=== PATIENT | male | born 1945 | race Caucasian/White ===

== ENCOUNTER 2020-05-25 14:52 | Outpatient (REF) | payer BC, SELFPAY ==
[2020-05-29 10:13] LABS: SARS-CoV-2 RNA Undetected (Undetected); SARS-CoV-2 Specimen Source Nasal
== END 2020-05-25 15:12 ==
LOC: NCHCN 14:52
PROVIDERS: PCP Physician Assistant; Visit Provider Physician Assistant
DX: Z11.59 Encounter for screening for other viral diseases (principal)
CPT/HCPCS: U0003

== ENCOUNTER 2024-12-14 00:19 | Outpatient (CLI) | payer MEDICARE, BC, SELFPAY ==
--- NOTE | 2024-12-14 08:30 | DI.MRI_ITS ---
Exam(s) MR LUMBAR SPINE WO EXAM: MR LUMBAR SPINE WO CLINICAL HISTORY: Low back pain with right leg radiation,post laminectomy syndrome,m96.1. TECHNIQUE: Multiplanar multisequence MRI of the Lumbar spine was performed. COMPARISON: There are no priors for comparison. FINDINGS: Bones: The last intervertebral disc space is designated the L5/S1 level for the numbering purpose of this examination. The vertebral body heights are well maintained. There is straightening of the normal cervical lordosis. Endplate degenerative signal changes are present throughout the lumbar spine. There is a right convex lumbar scoliosis. Cord: The conus tip ends at the T12 level. It is of normal size and signal intensity. T12-L1: No disc herniations or bulges are present. No central spinal canal or neural foraminal stenosis. L1-2: No disc herniations or bulges are present. No central spinal canal or neural foraminal stenosis. L2-3: There prominent osteophytes posteriorly. There are degenerative changes of the facets and hypertrophy of the ligamentum flavum. There is moderate narrowing of the central spinal canal. There is mild right and moderate left neural foraminal stenosis. L3-4: There are osteophytes seen posteriorly. There are degenerative changes of the facets and hypertrophy of the ligamentum flavum causing marked central spinal canal stenosis. There is moderate bilateral neural foraminal stenosis, left greater than right. L4-5: There prominent osteophytes and a diffuse disc bulge at this level. There are hypertrophic changes of the facets and ligamentum flavum. These all contribute to cause moderately severe central spinal canal stenosis. There is moderately severe bilateral neural foraminal stenosis present. L5-S1: There is a diffuse disc bulge. There are hypertrophic changes of the facets and ligamentum flavum. These all contribute to cause moderately severe central spinal canal stenosis. There is marked bilateral neural foraminal stenosis, left greater than right. Soft tissues: The visualized SI joints and sacrum are well maintained. The paraspinal soft tissues are unremarkable. Visualized abdominal organs: There are bilateral simple renal cysts. No follow- up is recommended. IMPRESSION: 1. Multilevel degenerative changes in the lumbar spine. 2. Findings are most marked at L3-L4 where there is marked central spinal canal stenosis and moderate bilateral neural foraminal stenosis. 3. Several levels of the lumbar spine show both central spinal canal and neural foraminal stenosis. Please see the above discussion for complete details. 4. There is a right convex lumbar scoliosis. DATA REPOSITORY:
== END 2024-12-14 00:39 ==
LOC: DI 00:19
PROVIDERS: PCP Family Medicine; Visit Provider Preventive Medicine Occupational Medicine
DX: M96.1 Postlaminectomy syndrome, not elsewhere classified (principal)
CPT/HCPCS: 72148

== ENCOUNTER 2024-12-23 07:33 | Outpatient (CLI) | payer MEDICARE, BC, SELFPAY ==
--- NOTE | 2024-12-23 06:00 | DI.RAD_ITS ---
Exam(s) XR PAIN CLINIC CERVICAL SP 2V EXAM: XR PAIN CLINIC CERVICAL SP 2V CLINICAL HISTORY: Dx: Cervical Spondylosis. TECHNIQUE: Fluoroscopy was provided for the referring physician for guidance with performing pain clinic injection procedure. COMPARISON: No exams were available for comparison FINDINGS: Please see procedure note for details. Fluoro time: 23.5 seconds RADIATION DOSE DELIVERED: augustin Oden=2.1 mGy
[2024-12-23 07:41] VITALS: BP 115/75; PULSE 58; RESP 18; TEMP 36.5; O2SAT 96
[2024-12-23 08:13] VITALS: PULSE 55; O2SAT 97
[2024-12-23 08:14] VITALS: BP 108/34; PULSE 55; RESP 19; O2SAT 98
[2024-12-23 08:16] VITALS: BP 111/39; PULSE 56; RESP 14; O2SAT 100
[2024-12-23 08:20] VITALS: PULSE 53; RESP 16; O2SAT 100
--- NOTE | 2024-12-23 08:25 | PDOC.PAIN_ITS ---
Date of service: 12/23/24 Time of Service: 08:25 Pain Managment Procedure Note Procedure Note Procedure Note: PROCEDURE NOTE LEFT SIDED CERVICAL MEDIAL BRANCH BLOCKS #1 Date of Service: December 23, 2024 Patient: Alireza Matute Jr Provider: Hitesh Ramirez DO, MPH Alireza Matute Jr has been [facility] to the [facility] for cervical medial branch blocks. Pre-operative diagnosis: Cervical Spondylosis without Myelopathy ICD-10 M47.812 Post-operative diagnosis: Same Pre-procedure pain: VAS= 5/10 COMMENTS: I previously evaluated him in the office. His symptoms are unchanged. Alireza?was interviewed and the medical records were reviewed. There were no medical, pharmacologic, radiographic or other structural contraindications to attempting fluoroscopically guided local anesthetic cervical medial branch blocks. Risks and potential side effects were discussed. I also discussed the potential benefit(s) of the procedure with Alireza, and voiced concerns were addressed. After Alireza was completely informed about the procedure, the printed consent form was signed. A standard time-out procedure was performed. Alireza was placed in the lateral decubitus position on the fluoroscopy table with the effected side up. Automated blood pressure cuff and pulse oximeter were applied. The skin entry points for approaching the anatomic target points of the segmental medial branches of Left C2 and C3 were identified with fluoroscopy and marked. The skin at the target site area was thoroughly prepared with Chlorhexadine. The skin was then draped. Next, a 25 gauge 3.5 spinal needle was placed under fluoroscopic guidance down on to the target point (the articular pillar) for each respective segmental medial branch. Position was confirmed in A/P and lateral views. Aspiration revealed no blood or clear fluid. Next, 0.25ml of omnipaque 240 was injected at each level. No contrast following a vascular or neural pattern was visualized under continuous fluoroscopy. Next, 0.25 ml of preservative-free 0.5% bupivicaine was injected at each level. (49 mls of Omnipaque was wasted) There was no unusual discomfort expressed by Alireza. The needles were withdrawn without difficulty. Alireza was observed and was without hemodynamic, neurologic, or allergic reactions.? Fluoroscopic images were digitally archived. Alireza's vital signs were stable throughout the procedure and were as recorded in the docflowsheet by the nursing staff. Provacative testing using the Modified Marshall's facet loading test Left side Directly before the block VAS (0-10) = 5/10 Five minutes after the block VAS (0-10) = 1/10 Percentage relief obtained with this diagnostic block 80% Any improved physical functioning directly after the blocks? Able to move his neck much better Follow up plans and appointments were discussed with Alireza. Alireza was instructed to keep careful note of how the usual pain was modified by these injections. Specifically, to keep a pain diary for the next 4 hours using a numeric pain scale of 0-10 and report these results. Post procedure instruction was given as documented in the nursing documentation and having met discharge criteria, the patient was [facility] from the [facility]. Based on the medial branches blocked today, if Alireza has adequate relief and we are able to proceed to radiofrequency ablation, the treatment should result in the denervation of the Left C2-C3 facet joint. We would expect to denervate a total of 1 facets during the radiofrequency ablation. COMMENTS: No apparent complications. Post-procedure pain: VAS= 1/10 Alireza will call back with 0-4 hour post-procedure pain scores. I personally performed the entire procedure. HITESH RAMIREZ DO, MPH ABPM&R-subspecialty board certification in Pain Medicine [facility] Coding Conscious Sedation used for procedure: No CPT Codes: CMBB (includes Fluoro) Cervical/Thoracic, single lvl - 36456 ([id number] ~G) Additional Codes: Date of Service (46829) Date of service: 12/23/24 Diagnoses: Cervical spondylosis without myelopathy
[2024-12-23 08:26] VITALS: BP 147/72; PULSE 55
[2024-12-23] MEDS: Omnipaque 240 MG/ML 50 ML BTL IJ (08:28)
[2024-12-23] MEDS: Bupivacaine 0.5% Pres-Free 10 ML VIAL IJ (08:29)
== END 2024-12-23 07:34 | disposition home or self-care (01) ==
LOC: PC 07:34
PROVIDERS: PCP Specialist/Technologist Athletic Trainer; Visit Provider Preventive Medicine Occupational Medicine
DX: M54.2 Cervicalgia (principal); M47.812 Spondylosis without myelopathy or radiculopathy, cervical region
CPT/HCPCS: 64490; 72040; J0665; Q9967

== ENCOUNTER 2025-01-07 09:39 | Outpatient (CLI) | payer MEDICARE, BC, SELFPAY ==
--- NOTE | 2025-01-07 06:00 | DI.RAD_ITS ---
Exam(s) XR PAIN CLINIC CERVICAL SP 2V EXAM: XR PAIN CLINIC CERVICAL SP 2V CLINICAL HISTORY: Dx: Cervical Spondylosis. TECHNIQUE: Fluoroscopy was provided for the referring physician for guidance with performing pain clinic injection procedure. COMPARISON: No exams were available for comparison FINDINGS: Please see procedure note for details. Fluoro time: 21.2 seconds RADIATION DOSE DELIVERED: augustin Oden=2.0 mGy
[2025-01-07 09:52] VITALS: BP 120/80; PULSE 74; RESP 18; TEMP 37; O2SAT 97
[2025-01-07 10:25] VITALS: PULSE 63; O2SAT 94
[2025-01-07 10:26] VITALS: BP 98/48; PULSE 63; RESP 15; O2SAT 93
[2025-01-07 10:30] VITALS: PULSE 60; RESP 15; O2SAT 93
[2025-01-07 10:31] VITALS: BP 102/46; PULSE 60; RESP 17; O2SAT 95
[2025-01-07] MEDS: Omnipaque 240 MG/ML 50 ML BTL IJ (10:38)
[2025-01-07] MEDS: Nerve Block Tray 1 EACH MC (10:38)
[2025-01-07] MEDS: Bupivacaine 0.5% Pres-Free 10 ML VIAL IJ (10:39)
--- NOTE | 2025-01-07 10:40 | PDOC.PAIN ---
Date of service: 01/07/25 Time of Service: 10:40 Pain Managment Procedure Note Procedure Note Procedure Note: PROCEDURE NOTE LEFT SIDED CERVICAL MEDIAL BRANCH BLOCKS Date of Service: January 07, 2025 Patient: Alireza Matute Jr Provider: Hitesh Ramirez DO, MPH Alireza Eddie Matute Jr has been referred to the [facility] for cervical medial branch blocks. Pre-operative diagnosis: Cervical Spondylosis without Myelopathy ICD-10 M47.812 Post-operative diagnosis: Same Pre-procedure pain: VAS= 6-7/10 COMMENTS: He did very well with his first CMBB Alireza?was interviewed and the medical records were reviewed. There were no medical, pharmacologic, radiographic or other structural contraindications to attempting fluoroscopically guided local anesthetic cervical medial branch blocks. Risks and potential side effects were discussed. I also discussed the potential benefit(s) of the procedure with Alireza, and voiced concerns were addressed. After Alireza was completely informed about the procedure, the printed consent form was signed. A standard time-out procedure was performed. Alireza was placed in the lateral decubitus position on the fluoroscopy table with the effected side up. Automated blood pressure cuff and pulse oximeter were applied. The skin entry points for approaching the anatomic target points of the segmental medial branches of Left C2 (TON) and C3 were identified with fluoroscopy and marked. The skin at the target site area was thoroughly prepared with Chlorhexadine. The skin was then draped. Next, a 25 gauge 3.5 spinal needle was placed under fluoroscopic guidance down on to the target point (the articular pillar) for each respective segmental medial branch. Position was confirmed in A/P and lateral views. Aspiration revealed no blood or clear fluid. Next, 0.25ml of omnipaque 240 was injected at each level. No contrast following a vascular or neural pattern was visualized under continuous fluoroscopy. Next, 0.25 ml of preservative-free 0.5% bupivicaine was injected at each level. (49 mls of Omnipaque was wasted) There was no unusual discomfort expressed by Alireza. The needles were withdrawn without difficulty. Alireza was observed and was without hemodynamic, neurologic, or allergic reactions.? Fluoroscopic images were digitally archived. Alireza's vital signs were stable throughout the procedure and were as recorded in the docflowsheet by the nursing staff. Provacative testing using the Modified Marshall's facet loading test Left side Directly before the block VAS (0-10) = 6-7/10 Five minutes after the block VAS (0-10) = 1/10 Percentage relief obtained with this diagnostic block 90% Any improved physical functioning directly after the blocks? Able to move his neck with much less pain Follow up plans and appointments were discussed with Alireza. Alireza was instructed to keep careful note of how the usual pain was modified by these injections. Specifically, to keep a pain diary for the next 4 hours using a numeric pain scale of 0-10 and report these results. Post procedure instruction was given as documented in the nursing documentation and having met discharge criteria, the patient was discharged from the [facility]. Based on the medial branches blocked today, if Alireza has adequate relief and we are able to proceed to radiofrequency ablation, the treatment should result in the denervation of the Left C2-C3 facet joints. We would expect to denervate a total of 1 facets during the radiofrequency ablation. COMMENTS: No apparent complications. Post-procedure pain: VAS= 1/10 Alireza will call back with 0-4 hour post-procedure pain scores. I personally performed the entire procedure. HITESH RAMIREZ DO, MPH ABPM&R-subspecialty board certification in Pain Medicine [facility] Coding Conscious Sedation used for procedure: No CPT Codes: CMBB (includes Fluoro) Cervical/Thoracic, single lvl - 77726 ([id number] ~G) Additional Codes: Date of Service (72577) Date of service: 01/07/25 Diagnoses: Cervical spondylosis without myelopathy
== END 2025-01-07 09:40 | disposition home or self-care (01) ==
LOC: PC 09:39
PROVIDERS: PCP Specialist/Technologist Athletic Trainer; Visit Provider Preventive Medicine Occupational Medicine
DX: M54.2 Cervicalgia (principal); M47.812 Spondylosis without myelopathy or radiculopathy, cervical region
CPT/HCPCS: 64490; 72040; J0665; Q9967

== ENCOUNTER 2025-02-03 06:56 | Outpatient (CLI) | payer MEDICARE, BC, SELFPAY ==
[2025-02-03] VITALS (14 sets, daily range): BP systolic 83–147; BP diastolic 37–83; PULSE 45–53; RESP 9–20; TEMP 37.1; O2SAT 96
--- NOTE | 2025-02-03 06:00 | DI.RAD_ITS ---
Exam(s) XR PAIN CLINIC CERVICAL SP 2V EXAM: XR PAIN CLINIC CERVICAL SP 2V CLINICAL HISTORY: Dx: Cervical Spondylosis TECHNIQUE: 2D and realtime digital imaging was performed. CONTRAST MATERIAL: Refer to procedure report. COMPARISON: No exams were available for comparison FINDINGS: Fluoroscopy was provided for Dr. Raimrez during the performance of a cervical radiofrequency ablation. Please refer to the procedure report for complete details. Ka,r=3.6 mGy IMPRESSION: RADIATION DOSE DELIVERED: 0.0 0.0 0
[2025-02-03] MEDS: fentaNYL 100 MCG/2 ML VIAL IJ (08:25)
[2025-02-03] MEDS: Midazolam 2 MG/2 ML VIAL IVP (08:25)
[2025-02-03] MEDS: Lactated Ringers 500 ML 30 ML IV (08:38)
--- NOTE | 2025-02-03 09:01 | PDOC.PAIN_ITS ---
Date of service: 02/03/25 Time of Service: 09:01 Pain Managment Procedure Note Procedure Note Procedure Note: PROCEDURE NOTE LEFT Cervical Radiofrequency Ablation Date of Service: February 03, 2025 Patient:? Alireza Matute Jr? Provider:? Hitesh Ramirez DO, MPH Alireza Matute Jr has been referred to the [facility] for LEFT Cervical Radiofrequency Ablation with the [employer]s Machine.? Pre Operative Diagnosis: Cervical Spondylosis without Myelopathy ICD-10 M47.812 Post Operative Diagnosis: Same Pre procedure pain; VAS= 3/10 Comments: Great relief with left C2 and C3 CMBBs PROCEDURE: 1. Left C2-C3 facet joint radiofrequency denervation Alireza?was interviewed and the medical record was reviewed.? There were no medical, pharmacologic, radiographic or other structural contraindications to attempting fluoroscopically guided LEFT Cervical Radiofrequency Ablation.?Risks and expected side effects as well as potential benefit of the procedure were reviewed with lAireza, and the patient's voiced concerns were addressed.? The printed consent form was signed.? Standard time-out procedure was performed. Alireza was brought to the procedure suite and placed on the exam table in a comfortable lateral recumbent position. A grounding pad was placed on the left abdomen. The place for the needle placement was obtained by manual palpation as well as radiographic confirmation. The sterile field was prepped by chlorhexidine and sterile drapes. Local anesthesia, both superficial and deep was provided by local infiltration of 3 ml Lidocaine 1%. Using fluoroscopic guidance, A 17g 50 mm radiofrequency introducer needle with a 2 mm active tip was placed overlying the left C2 (TON) cervical vertebra from the lateral approach and was advanced until bony contact was felt with the articular pillar. Attempted aspiration revealed no blood or cerebrospinal fluid. Motor testing was then performed with 2.0 volts and no upper extremity motor stimulation was observed. 1 ml of 2% Lidocaine was injected through the RF needle. A radiofrequency lesion of the Left medial branch of C2 (TON) was then performed at 80 degrees Celsius for 2 minutes and 30 seconds. There was no unusual discomfort expressed by Alireza. The needles were withdrawn without difficulty. Alireza was observed and was without hemodynamic, neurologic, or allergic reactions. Fluoroscopic images were digitally archived. The same procedure was repeated for Left C3 medial branches. POST PROCEDURE EVALUATION: IMPRESSION: 1. Medication given is documented in the MAR 2. Follow up plan: Alireza to contact [facility] as needed. This procedure may be repeated if the patient achieves at least 50% improvement in pain and/or function for at least 6 months. 3. Estimated Blood Loss: <5ml 4. Fluoroscopy time: Documented in the EMR Follow up plans and appointments were discussed with Alireza. Post procedure instruction was given as documented in nursing documentation and having met everette mena criteria, Alireza was discharged from the [facility]. This advanced procedure uses cooled radiofrequency energy to safely target the sensory nerves responsible for sending pain signals.1 A radiofrequency generator transmits a small current of Radiofrequency energy through an insulated electrode, or probe, placed within tissue. Ionic heating, produced by the friction of charged molecules, thermally deactivates the nerves responsible for sending pain signals to the brain. Radiofrequency energy heats and cools the tissue at the site of pain. Unlike other Radiofrequency procedures, Coolief circulates water through the device while heating nervous tissue to create a larger treatment area, increasing the opportunity to help with pain. This combination targets the pain- transmitting nerves without excessive heating, leading to pain relief. COMMENTS: No apparent complications. Post-procedure pain: VAS= 0/10. I personally performed this entire procedure. HITESH RAMIREZ DO, MPH ABPM&R - Subspecialty board certification in Pain Medicine [facility] Coding Conscious Sedation used for procedure: Yes CPT Codes: Single Facet Joint, Cervical/Thoracic cool - 18797J ([id number]~G) Additional Codes: Date of Service (75461) Date of service: 02/03/25 Diagnoses: Cervical spondylosis without myelopathy
[2025-02-03] MEDS: Lidocaine 2% Pres-Free 5 ML VIAL IJ (09:08)
[2025-02-03] MEDS: Dexamethasone Sod. Phos./Pres-Free 10 MG/ML VIAL IJ (09:08)
[2025-02-03] MEDS: Bupivacaine 0.5% Pres-Free 10 ML VIAL IJ (09:08)
[2025-02-03] MEDS: Nerve Block Tray 1 EACH MC (09:09)
== END 2025-02-03 06:57 | disposition home or self-care (01) ==
LOC: PC 06:57
PROVIDERS: PCP Specialist/Technologist Athletic Trainer; Visit Provider Preventive Medicine Occupational Medicine
DX: M54.2 Cervicalgia (principal); M47.812 Spondylosis without myelopathy or radiculopathy, cervical region
CPT/HCPCS: 64633; 72040; J0665; J1100; J2250; J3010

== ENCOUNTER 2025-02-25 10:27 | Outpatient (CLI) | payer MEDICARE, BC, SELFPAY ==
--- NOTE | 2025-02-25 06:00 | DI.RAD_ITS ---
Exam(s) XR PAIN CLINIC LUMBAR SP 2V EXAM: XR PAIN CLINIC LUMBAR SP 2V CLINICAL HISTORY: DX: Lumbar Radiculopathy TECHNIQUE: 2D and realtime digital imaging was performed. CONTRAST MATERIAL: Refer to procedure report. COMPARISON: No exams were available for comparison FINDINGS: Fluoroscopy was provided for Dr. Ramirez during the performance of a caudal epidural steroid injection. Please refer to the procedure report for complete details. Ka,r=12.0 mGy IMPRESSION: RADIATION DOSE DELIVERED: 0.0 0.0 0
[2025-02-25 10:18] VITALS: BP 109/70; PULSE 65; RESP 18; TEMP 36.3; O2SAT 96
[2025-02-25 10:58] VITALS: PULSE 63
[2025-02-25 11:00] VITALS: BP 132/83; PULSE 60; PULSE 62; RESP 12; O2SAT 99
[2025-02-25 11:01] VITALS: BP 143/89; PULSE 62; PULSE 63; RESP 12; O2SAT 99
[2025-02-25 11:02] VITALS: PULSE 58; PULSE 59; RESP 11; O2SAT 92
[2025-02-25 11:10] VITALS: PULSE 63; RESP 12; O2SAT 97
--- NOTE | 2025-02-25 11:13 | PDOC.PAIN_ITS ---
Date of service: 02/25/25 Time of Service: 11:13 Pain Managment Procedure Note Procedure Note Procedure Note: PROCEDURE NOTE CAUDAL EPIDURAL STEROID INJECTION Date of Service: February 25, 2025 Patient:? Alireza Matute Jr? Provider:? Hitesh Ramirez DO, MPH Alireza Matute Jr has been referred to the [facility] for caudal epidural steroid injection.? Pre-operative diagnosis: Lumbosacral Radiculopathy, ICD-10 M54.17 Post-operative diagnosis: Same Pre-Procedure Pain: VAS= 6/10. COMMENTS: I previously evaluated him in the office. Alcideswas interviewed and the medical record was reviewed.? There were no medical, pharmacologic, radiographic or other structural contraindications to attempting fluoroscopically guided epidural steroid injection.? Risks and expected side effects as well as potential benefit of the procedure were reviewed with Alcides, and the patient's voiced concerns were addressed.? The printed consent form was signed.? Standard time-out procedure was performed. Alcides was placed in the prone position on the fluoroscopy table and automated blood pressure cuff and pulse oximeter applied.? The skin entry point for entering/approaching the epidural space by a caudal approach through the sacral hiatus ed identified with surgical skin marking.? Following thorough chlorhexidine preparation of the skin and draping and 1% lidocaine infiltration of the skin entry point and subcutaneous tissues, a 17 gauge Touhy needle was placed under fluoroscopic guidance? into the epidural space. Needle tip placement and depth were aided and confirmed by fluoroscopy in the lateral and AP position. There was no paresthesia or return of blood or CSF through the needle. 1 cc of Omnipaque 240 was injected with clear epidural spread confirmed with fluoroscopy. An Arrow 19G radio-opaque epidural catheter was advanced into the epidural space to the L5-S1 level and 2 cc of Omnipaque 240 was injected with clear epidural spread. 80 mg of Depo-Medrol was? injected. There was no unusual discomfort expressed by Alireza. The needle and catheter were then flushed with 1 cc of 1% Lidocaine and they were removed together without difficulty (49 cc of Omnipaque was wasted). Alireza was observed and was without hemodynamic, neurologic, or allergic reactions.? Fluoroscopic images were digitally archived. Alireza's vital signs were stable throughout the procedure and were as recorded in the docflowsheet by the nursing staff.? If given, dosages of intravenous drugs for anxiolysis and analgesia were documented in MAR. Follow up plans and appointments were discussed with Alireza.? Post procedure instruction was given as documented in nursing documentation and having met discharge criteria, Alireza was [facility] from the [facility]. ? COMMENTS: No apparent complications.? Post-procedure pain: VAS= 0/10. If the patient receives at least 50% improvement in pain and/or function for at least 3 months, this procedure can be repeated. I personally completed the entire procedure. HITESH RAMIREZ DO, MPH ABPM&R - Subspecialty board certification in Pain Medicine [facility] Coding Conscious Sedation used for procedure: No CPT Codes: Inj Spine L/S w/Imaging - 09121 ([id number] ~G) Additional Codes: Date of Service (99425) Date of service: 02/25/25 Diagnoses: lumbar radiculopathy
[2025-02-25] MEDS: Omnipaque 240 MG/ML 50 ML BTL IJ (11:17)
[2025-02-25] MEDS: Nerve Block Tray 1 EACH MC (11:17)
[2025-02-25] MEDS: methylPREDNISolone ACETATE 80 MG/ML VIAL IJ (11:18)
== END 2025-02-25 10:28 | disposition home or self-care (01) ==
LOC: PC 10:27
PROVIDERS: PCP Specialist/Technologist Athletic Trainer; Visit Provider Preventive Medicine Occupational Medicine
DX: M54.50 Low back pain, unspecified (principal); M54.17 Radiculopathy, lumbosacral region
CPT/HCPCS: 62323; 72100; J1010; Q9967